=== PATIENT | female | born 1940 | race Caucasian/White ===

== ENCOUNTER 2019-10-27 06:18 | Inpatient (IN) | payer MEDICARE, OTHER ==
[2019-10-24 14:30] LABS: Basophils # (auto) 0 10 ^3/uL (0-0.2); Basophils % (auto) 0.4 % (0.0-2.0); Eosinophils # (auto) 0.1 10 ^3/uL (0-0.8); Eosinophils % (auto) 0.7 % (0.0-7.0); Hematocrit 42.8 % (36.0-46.0); Hemoglobin 14.3 g/dL (12.2-16.2); Lymphocytes # (auto) 1.6 10 ^3/uL (0.4-5.4); Lymphocytes % (auto) 20.4 % (10.0-50.0); Mean Corpuscular Hgb Conc. 33.4 g/dL (32.0-36.0); Mean Corpuscular Volume 92.8 fL (80.0-100.0); Monocytes # (auto) 0.7 10 ^3/uL (0-1.3); Monocytes % (auto) 8.8 % (0.0-12.0); Neutrophils # (auto) 5.3 10 ^3/uL (1.6-8.6); Neutrophils % (auto) 69.7 % (37.0-80.0); Nucleated Red Blood Cells % 0.1 %; Platelet Count (auto) 214 10^3/uL (140-450); Red Blood Cells 4.61 10^6/uL (4.0-5.20); Red Cell Distribution Width 14.4 % (11.8-14.3); White Blood Cell 7.6 10^3/uL (4.4-10.8)
[2019-10-24 14:36] LABS: Urine Bacteria FEW /hpf (None Seen); Urine Blood Negative /uL (Negative); Urine Specific Gravity 1.008 (1.001-1.035); Urine WBC 1 /hpf (0 - 5)
[2019-10-24 14:44] LABS: BUN/Creatinine Ratio 20.8; Calcium 8.8 mg/dL (8.5-10.1)
[2019-10-24 14:47] LABS: Bilirubin, Total 0.7 mg/dL (0.2-1.0)
[2019-10-24 14:53] LABS: Partial Thromboplastin Time 26.8 sec (23.64-32.05)
[~2019-10-27] VITALS: Ht 154.9 cm; Wt 83.6 kg
[~2019-10-27 06:18] MED LIST: ATOR20TA50 PO; BUSP5TAB51 PO; CRAN600T PO; DICL1GEL35 TD; DILT180C52 PO; DOCU-94 PO; DULO60CA PO; FLUT1SPR5; LEVO75TA6 PO; LISI10TA6 PO; LORA-622 PO; TRAM50TA2 PO
[2019-10-27] MEDS ORDERED: BUPIVACAINE W/ EPINEPH 0.25% INJ 50ML MDV ONE (07:08)
[2019-10-27] MEDS ORDERED: TRANEXAMIC ACID 20 ML ONE (07:08)
[2019-10-27] MEDS ORDERED: MORPHINE SULF(PF) 0.5MG/ML 10ML VIAL ONE ×2 (07:09→07:26)
[2019-10-27] MEDS ORDERED: KETOROLAC TROMETH 30 MG/ML 1ML VIAL ONE (07:09)
[2019-10-27] MEDS ORDERED: VANCOMYCIN HCL 1000 MG VL ONE (07:12)
[2019-10-27] MEDS ORDERED: CELECOXIB 100 MG CAP PO ONE (07:15)
[2019-10-27] MEDS ORDERED: ACETAMINOPHEN IV 100 ML IV ONE (07:15)
[2019-10-27] MEDS ORDERED: PREGABALIN CAPSULE 75 MG CAP PO ONE (07:15)
[2019-10-27] MEDS ORDERED: ceFAZolin 1GM/50ML 100 ML IV ONE (07:15)
[2019-10-27] MEDS ORDERED: PREGABALIN CAPSULE 75 MG CAP ONE (07:19)
[2019-10-27] MEDS ORDERED: CELECOXIB 100 MG CAP ONE (07:19)
[2019-10-27] MEDS ORDERED: TETRACAINE 1% INJ 2 ML VIAL IJ ONE (07:23)
[2019-10-27] MEDS ORDERED: MIDAZOLAM HCL 1MG/1ML-2 ML VIAL ONE ×2 (07:26→07:48)
[2019-10-27] MEDS ORDERED: fentaNYL CITRATE 100 MCG/2 ML VL ONE (07:26)
[2019-10-27] MEDS ORDERED: PHENYLEPHRINE HCL 10 MG/ML VL ONE (07:48)
[2019-10-27] MEDS ORDERED: PROPOFOL 10 MG/ML 20 ML IV ONE (07:48)
[2019-10-27] MEDS ORDERED: DexAMETHasone SOD PHOS 10MG/1ML VIAL INJ ONE (07:48)
[2019-10-27] MEDS ORDERED: diphenhdrAMINE HCL 50 MG/1 ML VL IV PRN (08:15)
[2019-10-27] MEDS ORDERED: LABETALOL HCL 5 MG/ML 4ML SYRINGE IV PRN (08:15)
[2019-10-27] MEDS ORDERED: ePHEDrine SULFATE 50 MG/ML AMP IV PRN (08:15)
[2019-10-27] MEDS ORDERED: HYDROmorphone HCL 2 MG/ML VL IV PRN ×2 (08:15→09:30)
[2019-10-27] MEDS ORDERED: NALBUPHINE HCL 10 MG/1ml INJECTION SUBCUT ONE (08:15)
[2019-10-27] MEDS ORDERED: DexAMETHasone SOD PHOS 10MG/1ML VIAL INJ IV PRN (08:15)
[2019-10-27] MEDS ORDERED: NALOXONE HCL 0.4 MG/ML VIAL IV PRN (08:15)
[2019-10-27] MEDS ORDERED: ONDANSETRON HCL 4 MG/2 ML VIAL IV PRN ×2 (08:15→09:30)
[2019-10-27] MEDS ORDERED: traMADol HCL 50 MG TAB PO PRN (09:30)
[2019-10-27] MEDS ORDERED: ACETAMINOPHEN 325 MG TAB PO PRN (09:30)
[2019-10-27] MEDS ORDERED: FLUTICASONE PROP NASAL SPR 0.05 % (50MCG) 16GM PRN (09:30)
[2019-10-27] MEDS ORDERED: MORPHINE SULF INJ 2 MG/ML SYRINGE 1ML IV PRN (09:30)
[2019-10-27] MEDS ORDERED: NITROGLYCERIN 0.4 MG SL TAB SL PRN (09:30)
[2019-10-27] MEDS: dilTIAZem HCL 180MG ER CAP PO SCH (10:00)
[2019-10-27] MEDS: CRANBERRY EXTRACT PO SCH (10:00)
[2019-10-27] MEDS: LISINOPRIL 10 MG TAB PO SCH (10:00)
[2019-10-27] MEDS ORDERED: ACETAMINOPHEN IV 1000 MG/100ML (10MG/ML) IV ONE (10:15)
[2019-10-27] MEDS: LACTATED RINGER'S 1,000 ML IV SCH ×2 (10:38→19:21)
[2019-10-27] MEDS: KETOROLAC TROMETH 30 MG/ML 1ML VIAL IV SCH ×2 (12:00→18:00)
[2019-10-27] MEDS: LORATADINE 10 MG TAB PO SCH (12:00)
[2019-10-27] MEDS: ceFAZolin 1GM/50ML 50 ML IV SCH ×2 (15:26→22:09)
[2019-10-27] MEDS: SODIUM CHLOR 0.9% PF (SALINE LOCK) 10ML VIAL/SYR IV SCH ×2 (19:22→22:00)
[2019-10-27 20:00] VITALS: BP 119/91
[2019-10-27 21:00] VITALS: BP 100/81
[2019-10-27 22:00] VITALS: BP 98/59
[2019-10-27] MEDS: DOCUSATE SOD 100 MG CAP PO SCH ×2 (22:00→22:09)
[2019-10-27] MEDS: busPIRone HCL 10 MG TAB PO SCH ×2 (22:00→22:09)
[2019-10-27] MEDS: DULoxetine HCL 30 MG CAP PO SCH (22:09)
[2019-10-27] MEDS: ATORVASTATIN 20 MG TAB PO SCH (22:10)
[2019-10-27 23:00] VITALS: BP 96/55
[2019-10-28] VITALS (14 sets, daily range): BP systolic 89–120; BP diastolic 50–78
[2019-10-28] MEDS ORDERED: ceFAZolin 1GM/50ML 50 ML IV ONE (03:51)
[2019-10-28] MEDS: ceFAZolin 1GM/50ML 50 ML IV SCH (03:55)
[2019-10-28 05:44] LABS: Hematocrit 31.5 % (36.0-46.0)
[2019-10-28 06:03] LABS: Potassium 4.3 mmol/L (3.5-5.1)
[2019-10-28 06:14] LABS: Albumin 3.2 g/dL (3.4-5.0); BUN/Creatinine Ratio 31.3; Bilirubin, Total 0.4 mg/dL (0.2-1.0); Calcium 7.5 mg/dL (8.5-10.1); Total Protein 5.5 g/dL (6.4-8.2)
[2019-10-28] MEDS: SODIUM CHLOR 0.9% PF (SALINE LOCK) 10ML VIAL/SYR IV SCH ×3 (06:17→21:27)
[2019-10-28] MEDS: LACTATED RINGER'S 1,000 ML IV SCH (06:41)
[2019-10-28] MEDS: DOCUSATE SOD 100 MG CAP PO SCH ×2 (09:45→21:26)
[2019-10-28] MEDS: LEVOTHYROXINE SODIUM 50 MCG TAB PO SCH ×2 (09:46→10:00)
[2019-10-28] MEDS: busPIRone HCL 10 MG TAB PO SCH ×2 (09:46→21:27)
[2019-10-28] MEDS: ENOXAPARIN SOD 40 MG/0.4 ML SYRINGE SC SCH ×2 (09:46→10:00)
[2019-10-28] MEDS: KETOROLAC TROMETH 30 MG/ML 1ML VIAL IV SCH ×2 (09:54→15:41)
[2019-10-28] MEDS: dilTIAZem HCL 180MG ER CAP PO SCH (10:00)
[2019-10-28] MEDS: LISINOPRIL 10 MG TAB PO SCH (10:00)
[2019-10-28] MEDS: CRANBERRY EXTRACT PO SCH (10:01)
[2019-10-28] MEDS: HYDROcodone-ACET 5/325MG TAB PO PRN ×2 (11:12→17:34)
[2019-10-28] MEDS: LORATADINE 10 MG TAB PO SCH (12:42)
[2019-10-28] MEDS ORDERED: LACTATED RINGER'S 1,000 ML IV SCH (13:00)
[2019-10-28] MEDS: DULoxetine HCL 30 MG CAP PO SCH (21:26)
[2019-10-28] MEDS: ATORVASTATIN 20 MG TAB PO SCH (21:27)
[2019-10-29 04:59] VITALS: BP 140/51
[2019-10-29] MEDS: SODIUM CHLOR 0.9% PF (SALINE LOCK) 10ML VIAL/SYR IV SCH ×3 (06:07→22:19)
[2019-10-29 06:13] LABS: Hematocrit 29.9 % (36.0-46.0); Hemoglobin 10.5 g/dL (12.2-16.2)
[2019-10-29 09:18] VITALS: BP 111/87
[2019-10-29] MEDS: ENOXAPARIN SOD 40 MG/0.4 ML SYRINGE SC SCH (09:35)
[2019-10-29] MEDS: busPIRone HCL 10 MG TAB PO SCH ×2 (09:38→22:18)
[2019-10-29] MEDS: DOCUSATE SOD 100 MG CAP PO SCH ×2 (09:38→22:17)
[2019-10-29] MEDS: LEVOTHYROXINE SODIUM 50 MCG TAB PO SCH (09:39)
[2019-10-29] MEDS: HYDROcodone-ACET 5/325MG TAB PO PRN ×2 (09:54→22:17)
[2019-10-29] MEDS: LORATADINE 10 MG TAB PO SCH (12:05)
[2019-10-29] MEDS: CRANBERRY EXTRACT PO SCH (12:07)
[2019-10-29 12:50] VITALS: BP 124/86
[2019-10-29 17:15] VITALS: BP 106/57
[2019-10-29 20:00] VITALS: BP 135/53
[2019-10-29 21:52] VITALS: BP 135/53
[2019-10-29] MEDS: DULoxetine HCL 30 MG CAP PO SCH (22:17)
[2019-10-29] MEDS: ATORVASTATIN 20 MG TAB PO SCH (22:17)
[2019-10-30 04:33] VITALS: BP 129/74
[2019-10-30] MEDS: SODIUM CHLOR 0.9% PF (SALINE LOCK) 10ML VIAL/SYR IV SCH ×2 (05:11→14:00)
[2019-10-30] MEDS: HYDROcodone-ACET 5/325MG TAB PO PRN ×2 (05:12→12:54)
[2019-10-30 07:05] LABS: Hematocrit 30.8 % (36.0-46.0); Hemoglobin 10.6 g/dL (12.2-16.2)
[2019-10-30 09:00] VITALS: BP 125/73
[2019-10-30] MEDS: CRANBERRY EXTRACT PO SCH (10:00)
[2019-10-30] MEDS: busPIRone HCL 10 MG TAB PO SCH (10:51)
[2019-10-30] MEDS: DOCUSATE SOD 100 MG CAP PO SCH (10:51)
[2019-10-30] MEDS: LEVOTHYROXINE SODIUM 50 MCG TAB PO SCH (10:51)
[2019-10-30] MEDS: ENOXAPARIN SOD 40 MG/0.4 ML SYRINGE SC SCH (10:51)
[2019-10-30 11:33] VITALS: BP 106/78
[2019-10-30] MEDS: LORATADINE 10 MG TAB PO SCH (12:52)
[2019-10-30 13:00] VITALS: BP 132/64
== END 2019-10-30 15:00 | disposition home health service (06) | DRG 470 ==
LOC: SUR 06:18 → TELE-WESTW 06:19 → WEST WING 10-29 07:01
PROVIDERS: ADMIT Orthopaedic Surgery Adult Reconstructive Orthopaedic Surgery; ATTEND Internal Medicine
PROC: 0SND0ZZ Release Left Knee Joint, Open Approach (ICD-10-PCS; 2019-10-27)
PROC: 0Q8 Lower Bones, Division (ICD-10-PCS; 2019-10-27)
PROC: 8E0YXBZ Computer Assisted Procedure of Lower Extremity (ICD-10-PCS; 2019-10-27)
PROC: 0SRC0J9 Replacement of Right Knee Joint with Synthetic Substitute, Cemented, Open Approach (ICD-10-PCS; principal; 2019-10-27 07:28)
DX: M17.11 Unilateral primary osteoarthritis, right knee (principal); E03.9 Hypothyroidism, unspecified; E66.9 Obesity, unspecified; F32.9 Major depressive disorder, single episode, unspecified; I10 Essential (primary) hypertension; M24.561 Contracture, right knee; Z03.818 Encounter for observation for suspected exposure to other biological agents ruled out; Z68.31 Body mass index [BMI] 31.0-31.9, adult
CPT/HCPCS: 36415; 73560; 80053; 81001; 84443; 85014; 85018; 85025; 85610; 85730; 86850; 86860; 86870; 86880; 86900; 86901; 86905; 86906; 86971; 97116; 97530; C1713; G0378; J0131; J0690; J1100; J1885; J2250; J2704

== ENCOUNTER 2023-11-21 11:34 | Inpatient (IN) | payer MEDICARE, OTHER ==
[~2023-11-21] VITALS: Ht 160 cm; Wt 79.2 kg
[~2023-11-21 11:34] MED LIST changes: -DICL1GEL35 TD; +DICL1GEL73 TD; -DULO60CA PO; +DULO60CA41 PO; +LISI10TA34 PO; -LISI10TA6 PO
[2023-11-21 12:27] LABS: Basophils # (auto) 0 10 ^3/uL (0-0.2); Eosinophils # (auto) 0 10 ^3/uL (0-0.8); Eosinophils % (auto) 0.3 % (0.0-7.0); Hematocrit 41.5 % (36.0-46.0); Hemoglobin 14.1 g/dL (12.2-16.2); Lymphocytes # (auto) 1.3 10 ^3/uL (0.4-5.4); Lymphocytes % (auto) 10.9 % (10.0-50.0); Mean Corpuscular Hemoglobin 31.5 pg (28.0-32.0); Mean Corpuscular Hgb Conc. 34.1 g/dL (32.0-36.0); Mean Corpuscular Volume 92.5 fL (80.0-100.0); Monocytes # (auto) 0.9 10 ^3/uL (0-1.3); Monocytes % (auto) 7.3 % (0.0-12.0); Neutrophils # (auto) 9.6 10 ^3/uL (1.6-8.6); Neutrophils % (auto) 81.5 % (37.0-80.0); Nucleated Red Blood Cells % 0.1 %; Red Blood Cells 4.49 10^6/uL (4.0-5.20); White Blood Cell 11.8 10^3/uL (4.4-10.8)
[2023-11-21 12:44] LABS: Alanine Aminotransferase 14 U/L (7-40); Albumin 4.8 g/dL (3.2-4.8); Alkaline Phosphatase 67 U/L (46-116); Anion Gap 8 (5-15); Aspartate Aminotransferase 13 U/L (13-40); BUN/Creatinine Ratio 10.8 (10.0-20.0); Blood Urea Nitrogen 11 mg/dL (9-23); Calcium 10.2 mg/dL (8.5-10.1); Carbon Dioxide 25 mmol/L (20-30); Chloride 100 mmol/L (98-107); Glucose 109 mg/dL (74-106); Potassium 3.7 mmol/L (3.5-5.1); Sodium 133 mmol/L (136-145)
[2023-11-21 12:45] LABS: Bilirubin, Total 0.9 mg/dL (0.2-1.0); Total Protein 6.7 g/dL (5.7-8.2)
[2023-11-21 12:48] LABS: Urine Bacteria FEW /hpf (None Seen); Urine Blood Negative /uL (Negative); Urine Clarity Turbid (Clear); Urine Color Yellow (Yellow); Urine Mucus FEW (None Seen); Urine Protein, UAD TRACE (Negative); Urine Specific Gravity 1.012 (1.001-1.035); Urine Urobilinogen Normal (Negative); Urine WBC 20 /hpf (0 - 5); Urine pH 6.5 (5.0-9.0)
[2023-11-21] MEDS: SODIUM CHLORIDE 0.9% 500 ML IV ONE (17:12)
[2023-11-21] MEDS: cefTRIAXone 1GM/50ML D5W 50 ML IV ONE (17:22)
[2023-11-21 17:25] VITALS: PULSE 69; RESP 17; O2SAT 98
[2023-11-21] MEDS ORDERED: ACETAMINOPHEN 325 MG TAB PO PRN (19:15)
[2023-11-21] MEDS ORDERED: FLUTICASONE PROP NASAL SPR 0.05 % (50MCG) 16GM PRN (19:15)
[2023-11-21] MEDS: LACTATED RINGER'S 1,000 ML IV ONE (19:15)
[2023-11-21] MEDS ORDERED: ONDANSETRON HCL 4 MG/2 ML VIAL IV PRN (19:15)
[2023-11-21] MEDS ORDERED: DOCUSATE SOD 100 MG CAP PO PRN (19:15)
[2023-11-21] MEDS ORDERED: HYDROcodone-ACET 5/325MG TAB PO PRN (19:15)
[2023-11-21 20:00] VITALS: PULSE 83; RESP 16; O2SAT 97
[2023-11-21] MEDS: busPIRone HCL 10 MG TAB PO SCH (22:00)
[2023-11-21] MEDS: DOCUSATE SOD 100 MG CAP PO SCH (22:43)
[2023-11-21] MEDS: DULoxetine HCL 30 MG CAP PO SCH (22:43)
[2023-11-21] MEDS: ATORVASTATIN 20 MG TAB PO SCH (22:44)
[2023-11-21] MEDS: SODIUM CHLOR 0.9% PF (SALINE LOCK) 10ML VIAL/SYR IV SCH (22:46)
[2023-11-21 23:32] VITALS: BP 112/65; PULSE 77; RESP 20; TEMP 98.4; O2SAT 97
[2023-11-21 23:40] VITALS: BP 104/68; PULSE 84; RESP 16; TEMP 98.7; O2SAT 96
[2023-11-22] MEDS: LEVOTHYROXINE SODIUM 25 MCG TAB PO SCH (06:16)
[2023-11-22 08:25] VITALS: PULSE 104; RESP 18; O2SAT 96
[2023-11-22 09:00] VITALS: BP 111/55; PULSE 104; RESP 18; TEMP 98.4; O2SAT 96
[2023-11-22 09:50] LABS: Hepatitis B Surface Antigen Negative (Negative)
[2023-11-22 10:11] LABS: Hepatitis C Antibody Negative (Negative)
[2023-11-22] MEDS: ENOXAPARIN SOD 40 MG/0.4 ML SYRINGE SC SCH (10:54)
[2023-11-22] MEDS: cefTRIAXone 1GM/50ML D5W 50 ML IV SCH (10:55)
[2023-11-22] MEDS: dilTIAZem HCL 180MG ER CAP PO SCH (10:56)
[2023-11-22] MEDS: LISINOPRIL 5 MG TAB PO SCH (10:57)
[2023-11-22 13:00] VITALS: BP 106/45; PULSE 70; RESP 18; TEMP 98.1; O2SAT 98
[2023-11-22] MEDS: LORATADINE 10 MG TAB PO SCH (14:22)
[2023-11-22] MEDS: metroNIDAZOLE 500MG/100ML 100 ML IV SCH (14:22)
[2023-11-22 17:00] VITALS: BP 117/44; PULSE 89; RESP 18; TEMP 98.4; O2SAT 99
[2023-11-22 20:00] VITALS: PULSE 97; RESP 20; O2SAT 0
[2023-11-22 21:00] VITALS: BP 152/41; PULSE 97; RESP 20; TEMP 99.2; O2SAT 96
[2023-11-23 01:00] VITALS: BP_SYST 104; BP_SYST 120; BP_DIAS 45; BP_DIAS 70; PULSE 88; PULSE 89; RESP 20; TEMP 98.1; TEMP 98.6; O2SAT 94; O2SAT 95
[2023-11-23 05:00] VITALS: BP 122/36; PULSE 87; RESP 20; TEMP 98.3; O2SAT 95
[2023-11-23 07:14] LABS: Calcium 9.7 mg/dL (8.5-10.1); Chloride 103 mmol/L (98-107); Sodium 135 mmol/L (136-145)
[2023-11-23 07:15] LABS: Anion Gap 7 (5-15); Carbon Dioxide 25 mmol/L (20-30)
[2023-11-23 07:20] LABS: BUN/Creatinine Ratio 13.3 (10.0-20.0); Blood Urea Nitrogen 12 mg/dL (9-23); Glucose 91 mg/dL (74-106)
[2023-11-23 08:00] VITALS: PULSE 91; RESP 16; O2SAT 95
[2023-11-23 08:46] VITALS: BP 108/42; PULSE 91; RESP 17; TEMP 98.2; O2SAT 95
[2023-11-23] MEDS ORDERED: METR-344 PO (10:17)
[2023-11-23] MEDS ORDERED: CIPR-173 PO (10:17)
[2023-11-23 11:45] VITALS: BP 125/47; PULSE 91; RESP 17; TEMP 98.2; O2SAT 95
== END 2023-11-23 13:49 | disposition home or self-care (01) | DRG 690 ==
LOC: ER 11:34 → OVERFLOW 19:17 → CENTRAL 19:17
PROVIDERS: ADMIT Internal Medicine; ATTEND Internal Medicine Geriatric Medicine
DX: N30.00 Acute cystitis without hematuria (principal); E87.1 Hypo-osmolality and hyponatremia; K57.30 Diverticulosis of large intestine without perforation or abscess without bleeding; I10 Essential (primary) hypertension; E03.9 Hypothyroidism, unspecified; Z88.5 Allergy status to narcotic agent; Z82.49 Family history of ischemic heart disease and other diseases of the circulatory system
CPT/HCPCS: 36415; 71046; 74176; 80048; 80053; 81001; 84484; 85025; 86803; 87086; 87340; 93005; 96361; 96365; G0378; J3490